=== PATIENT | female | born 2000 | race Caucasian/White ===

== ENCOUNTER 2019-01-19 08:55 | Emergency (ER) | payer BC ==
[~2019-01-19] VITALS: Ht 165.1 cm; Wt 52.3 kg
[2019-01-19 09:01] VITALS: BP 120/81; TEMP 97.8
[2019-01-19 09:40] VITALS: PULSE 73
== END 2019-01-19 09:43 | disposition home or self-care (01) ==
LOC: COL.ER 08:55
DX: K06.9 Disorder of gingiva and edentulous alveolar ridge, unspecified (principal); K05.10 Chronic gingivitis, plaque induced; F17.290 Nicotine dependence, other tobacco product, uncomplicated